=== PATIENT | male | born 1950 | race Caucasian/White ===

== ENCOUNTER 2018-11-18 18:38 | Emergency (ER) | payer OTHER, MEDICARE ==
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
[2018-11-19 00:37] VITALS: BP 124/66
== END 2018-11-19 00:37 | disposition home or self-care (01) ==
LOC: ER 18:38
DX: M54.6 Pain in thoracic spine (principal); M54.2 Cervicalgia; V43.52XA Car driver injured in collision with other type car in traffic accident, initial encounter; Y93.89 Activity, other specified; I25.10 Atherosclerotic heart disease of native coronary artery without angina pectoris; I10 Essential (primary) hypertension; E11.9 Type 2 diabetes mellitus without complications; Z79.4 Long term (current) use of insulin; Z95.1 Presence of aortocoronary bypass graft; Z95.5 Presence of coronary angioplasty implant and graft
CPT/HCPCS: 72040; 72070; 99283